=== PATIENT | male | born 1950 | race Caucasian/White ===

== ENCOUNTER → 2017-01-03 | Outpatient (CLI) | payer OTHER ==
[2017-01-03 18:38] LABS: BLOOD GAS BASE EXCESS -1.8 mmol/L (-2-2); BLOOD GAS HCO3 22 mmol/L (22-26); BLOOD GAS METHEMOGLOBIN 0.9 % (0-2); BLOOD GAS O2 HGB SATURATION 96 % (90-100); BLOOD GAS OXYGEN CONTENT 13.6 Vol % (12.0-20.0); BLOOD GAS PCO2 33 mmHg (38-42); BLOOD GAS PO2 119 mmHg (61-120); BLOOD GAS TOTAL HGB 9.9 G/DL (12.0-16.0); CRITICAL VALUE NO; TEMP CORR TO 98.6
[2017-01-03 18:39] LABS: DRAW SITE RT RADIAL; FIO2 21 %; NUMBER OF ARTERIAL PUNCTURES 1; STAT NO; ULNAR PULSE PRESENT
--- NOTE | 2017-01-07 09:46 | RSPPFT ---
DATE OF PROCEDURE: 01/03/17 COMMENTS: Spirometry shows FVC of 2.9 predicted 3.4, FEV1 of 2.2 predicted 2.7, FEV1/FVC ratio 76% predicted 80%. Lung volumes are basically within the predicted range. There is a minimal reduction in the TLC. DLCO is 46% of predicted. IMPRESSION: On the basis of the above, although the flow volume loop is less than optimum, patient has flow values that appear to be within the predicted range. There is decreased DLCO.
== END ==
LOC: HRSP 09:14
PROVIDERS: ATTEND Internal Medicine Pulmonary Disease
DX: J90 Pleural effusion, not elsewhere classified (principal); R06.02 Shortness of breath
CPT/HCPCS: 36600; 82805; 94060; 94620; 94726; 94729